=== PATIENT | male | born 1950 | race Caucasian/White ===

== ENCOUNTER → 2018-10-05 13:08 | Outpatient (CLI) | payer MEDICARE, OTHER ==
--- NOTE | 2018-10-06 14:51 | EC ---
PATIENT:HALEIGH JONES DATE OF SERVICE: 10/05/18 SEX: M MEDICAL RECORD: [id number] DATE OF : [birth year] LOCATION:[facility], [facility]IN [facility] AGE OF PATIENT: 68 ADMISSION DATE: 10/05/18 REFERRING PHYSICIAN: INTERPRETING PHYSICIAN: FELIX NAVARRO MD ECHOCARDIOGRAM REPORT ECHO CHARGES 4 ECHO COMPLETE Date: 10/05/18 CLINICAL DIAGNOSIS: HEART MURMUR ECHOCARDIOGRAPHIC MEASUREMENTS (adult normal given) AC root (d.<3.7cm) 3.8 cm LV Septum d (<1.2 cm> 1.7 cm Valve Excursion 1.8 cm LV Septum (systole) 2.0 cm Left Atria (s.<4.0cm> 4.4 cm LVPW d(<1.2cm) 1.9 cm RV (d.<2.3cm) 5.4 cm LVPW (sytole) 2.1 cm LV diastole(<5.6CM) 5.8 cm MV E-F(>70mm/sec) cm LV systole 4.3 cm LVOT Diameter 2.3 cm MV exc.(>10mm) 1.7 cm Est.ejection fraction (50-75%) % DOPPLER: LVIT cm/sec A 79.0 cm/sec E 41.0 cm/sec LA cm/sec RVSP 26 mmHg LVOT 98 cm/sec AOP1/2T m/s Asc. Ao 136 cm/sec RVOT 90 cm/sec RA cm/sec PA 153 cm/sec AV Gradient Peak 7.41 mmHg AV Mean 4.49 mmHg AV Area 3.3 cm MV Gradient Peak 2.45 mmHg MV Mean 1.18 mmHg MV Area cm COMMENTS: Director Medical Economics: 2 LUKE PHILIPPE Tobacco Baler: 3 Dr. Coronel TAPE# PACS Pericardial Effusion N DATE OF SERVICE: 10/05/2018 Adequate 2-D, color-flow and spectral Doppler, and M-mode. Mild LVH. LV internal dimensions are normal. Wall motion is normal. EF is greater than or equal to 55%. Aortic valve is tricuspid. No evidence of stenosis by Doppler interrogation. Left atrium is dilated at 4.4 cm. Mitral valve shows no prolapse. Trace MR. Right-sided chambers are grossly normal. Trace TR. ECHOCARDIOGRAM REPORT [id number] HALEIGH JONES TRANSINT:[id number] Voice Confirmation ID: [id number] DOCUMENT ID: [id number] FELIX NAVARRO MD at 1451 CC: [id number] DICTATION DATE: 10/06/18 1352 HOLLOW HANDLE BENCH WORKER: 10/06/18 1413 DEP CLI 10/05/18 [place] [id number] [place] [id number]
--- NOTE | 2018-10-10 09:13 | ST ---
PATIENT:HALEIGH JONES MEDICAL RECORD: [id number] SEX: M LOCATION:[facility] ORDER #: ADMISSION DATE: 10/05/18 AGE OF PATIENT: 68 REFERRING PHYSICIAN: INTERPRETING PHYSICIAN: FELIX NAVARRO MD DATE OF SERVICE: 10/05/2018 PROCEDURE: Treadmill stress test. Baseline ECG is normal. Exercised for 10 minutes on Guerrero protocol. Maximum heart rate 154 beats per minute, greater than 85% of max predicted. No ECG change for ischemia. No symptoms of ischemia. Normal blood pressure response to exercise. No arrhythmias noted. Excellent exercise tolerance for age. TRANSINT:[id number] Voice Confirmation ID: [id number] DOCUMENT ID: [id number] FELIX NAVARRO MD at 0913 CC: [id number] DICTATION DATE: 10/09/18 1018 WAXER TENDER: 10/09/18 1230 DEP CLI 10/05/18 [place] [id number] [place] [address]
== END | disposition home or self-care (01) ==
LOC: D.HCCARDIO 13:08
PROVIDERS: ATTEND Internal Medicine Interventional Cardiology
DX: R01.1 Cardiac murmur, unspecified (principal); R06.09 Other forms of dyspnea

== ENCOUNTER → 2020-02-16 10:50 | Outpatient (CLI) | payer MEDICARE, OTHER ==
--- NOTE | ~2020-02-16 | EC ---
PATIENT:HALEIGH JONES DATE OF SERVICE: 02/16/20 SEX: M MEDICAL RECORD: [id number] DATE OF : [birth year] [facility] AGE OF PATIENT: 69 ADMISSION DATE: 02/16/20 REFERRING PHYSICIAN: INTERPRETING PHYSICIAN: FELIX NAVARRO MD ECHOCARDIOGRAM REPORT ECHO CHARGES 4 ECHO COMPLETE Date: 02/16/20 CLINICAL DIAGNOSIS: HX OF ATRIAL FIB/HTN ECHOCARDIOGRAPHIC MEASUREMENTS (adult normal given) AC root (d.<3.7cm) 4.2 cm LV Septum d (<1.2 cm> 1.3 cm Valve Excursion 1.8 cm LV Septum (systole) 1.5 cm Left Atria (s.<4.0cm> 4.6 cm LVPW d(<1.2cm) 1.4 cm RV (d.<2.3cm) 4.3 cm LVPW (sytole) 1.5 cm LV diastole(<5.6CM) 6.0 cm MV E-F(>70mm/sec) cm LV systole 4.2 cm LVOT Diameter 2.4 cm MV exc.(>10mm) 1.7 cm Est.ejection fraction (50-75%) % DOPPLER: LVIT cm/sec A 60.0 cm/sec E 46.0 cm/sec LA cm/sec RVSP 26 mmHg LVOT 91 cm/sec AOP1/2T m/s Asc. Ao 121 cm/sec RVOT 60 cm/sec RA cm/sec PA 113 cm/sec AV Gradient Peak 5.86 mmHg AV Mean 2.68 mmHg AV Area 3.6 cm MV Gradient Peak 1.71 mmHg MV Mean 0.69 mmHg MV Area cm COMMENTS: Retirement Actuary: 2 LUKE PHILIPPE Salon Receptionist: 3 Dr. Coronel TAPE# PACS Pericardial Effusion N DATE OF SERVICE: Adequate 2D, color flow imaging, spectral Doppler, and M-Mode LVH is present. LV internal dimensions are normal. Wall motion is normal. EF is greater than or equal to 55%. Aortic valve is tricuspid. No evidence of stenosis by Doppler interrogation. Left atrium is dilated at 4.6 cm. Mitral valve shows no prolapse. Mild MR. Right-sided chambers grossly normal. Trace TR. TRANSINT:[id number] Voice Confirmation ID: [id number] DOCUMENT ID: [id number] ECHOCARDIOGRAM REPORT [id number] HALEIGH JONES GREGORY A MD CC: [id number] DICTATION DATE: 02/20/20 1027 SELF RISING FLOUR MIXER: 02/20/202040 DEP CLI 02/16/20 [place] [id number] [place] [id number]
== END | disposition home or self-care (01) ==
LOC: D.HCCECHO 10:50
PROVIDERS: ATTEND Internal Medicine Interventional Cardiology
DX: I48.91 Unspecified atrial fibrillation (principal)